=== PATIENT | male | born 1955 | race Caucasian/White ===

== ENCOUNTER 2022-12-12 03:37 | Inpatient (IN) | payer MEDICARE ==
[2022-12-12] VITALS (49 sets, daily range): BP systolic 81–149; BP diastolic 39–90; PULSE 39–94; RESP 15–29; TEMP 98.1–98.9; O2SAT 99
[~2022-12-12] VITALS: Ht 165.1 cm; Wt 52.3 kg
[2022-12-12] MEDS ORDERED: SODIUM CHLORIDE 0.9% 1000ML BAG (SEPSIS BOLUS) IV ONE (06:00)
[2022-12-12 06:25] LABS: CHLORIDE 109 mEq/L (98-107)
[2022-12-12 06:27] LABS: HEMATOCRIT. 36.6 % (42.0-52.0); MEAN CORPUSCULAR HEMOGLOBIN 26.6 pg (28.0-32.0); MEAN CORPUSCULAR VOLUME 81.5 fL (80.0-94.0); MEAN PLATELET VOLUME 9.2 fl (7.4-10.4); PLATELET 133 x1000/uL (130-400); RED CELL DISTRIBUTION WIDTH 20.9 % (11.6-14.6)
[2022-12-12] MEDS ORDERED: VANCOMYCIN 1G PREMIX 200 ML IV ONE (07:00)
[2022-12-12] MEDS ORDERED: PIPERACILLIN/TAZ 3.375G PREMIX 50 ML IV ONE (07:00)
[2022-12-12] MEDS ORDERED: NOREPINEPHRINE 8MG/250ML PMX 250 ML IV PRN (07:30)
[2022-12-12 08:11] LABS: PLATELET ESTIMATE NORMAL
[2022-12-12] MEDS: DEXT 5%/LACTATED RINGERS 1,000 ML IV SCH ×2 (09:00→23:03)
[2022-12-12] MEDS ORDERED: DOCUSATE SODIUM 100MG CAPSULE PO PRN (09:00)
[2022-12-12] MEDS ORDERED: ACETAMINOPHEN 325MG TABLET PO PRN (09:00)
[2022-12-12] MEDS ORDERED: CLONIDINE 0.1MG TABLET PO PRN (09:00)
[2022-12-12] MEDS ORDERED: GUAIFENESIN 200MG/10ML SUGAR FREE UDC PO PRN (09:00)
[2022-12-12] MEDS ORDERED: ONDANSETRON HCL 4MG/2ML INJ IV PRN (09:00)
[2022-12-12] MEDS ORDERED: MEROPENEM 1,000 MG in SODIUM CHLORIDE 0.9% 100 ML IV SCH (09:00)
[2022-12-12] MEDS ORDERED: IPRATROPIUM/ALBUTEROL 0.5-3(2.5)MG/3ML NEB NEB PRN (09:00)
[2022-12-12] MEDS ORDERED: MAGNESIUM/ALUMINUM HYDROXIDE/SIMETHICONE 30ML UDC PO PRN (09:00)
[2022-12-12] MEDS ORDERED: NOREPINEPHRINE 8 MG in DEXT 5% WATER 242 ML IV PRN (09:00)
[2022-12-12] MEDS ORDERED: NITROGLYCERIN 0.4MG TABLET SL SL PRN (09:15)
[2022-12-12 09:40] LABS: T4 FREE 1.02 ng/dL (0.76-1.46)
[2022-12-12] MEDS: PANTOPRAZOLE SODIUM 40 MG/VIAL IV SCH (09:52)
[2022-12-12] MEDS: ASCORBIC ACID 500 MG TABLET PO SCH ×2 (09:52→20:48)
[2022-12-12] MEDS: ASPIRIN 325MG EC TABLET PO SCH (09:52)
[2022-12-12] MEDS: ENOXAPARIN 40MG/0.4ML SYR SUBCUT SCH (09:52)
[2022-12-12] MEDS: ZINC SULFATE 220 MG ( 50 ) CAPSULE PO SCH (09:52)
[2022-12-12 09:54] LABS: VITAMIN B12 SERUM 644 pg/mL (211-911)
[2022-12-12 10:27] LABS: FOLIC ACID (FOLATE) SERUM > 20.00 ng/mL (>5.38)
[2022-12-12] MEDS ORDERED: FERROUS SULFATE 325MG TABLET PO SCH (11:00)
[2022-12-12] MEDS ORDERED: NOREPINEPHRINE 32 MG in DEXT 5% WATER 218 ML IV PRN ×4 (12:45)
[2022-12-12] MEDS: PREGABALIN 75MG CAPSULE PO SCH (17:17)
[2022-12-12 17:43] LABS: CLARITY URINE CLEAR (CLEAR); COLOR URINE YELLOW (YELLOW); KETONES URINE NEGATIVE (NEGATIVE); LEUKOCYTE ESTERASE URINE 2+ (NEGATIVE); NITRITE URINE POSITIVE (NEGATIVE); OCCULT BLOOD URINE 3+ (NEGATIVE); PH URINE 7.5 (4.5-8.0); PROTEIN URINE 1+ (NEGATIVE); SPECIFIC GRAVITY URINE 1.012 (1.005-1.030); UROBILINOGEN URINE 0.2 E.U./dL (0.2-1.0)
[2022-12-12 17:58] LABS: *AMPHETAMINES SCREEN URINE NEGATIVE (NEGATIVE); *BARBITURATES SCREEN URINE NEGATIVE (NEGATIVE); *BENZODIAZEPINES SCREEN URINE NEGATIVE (NEGATIVE); *COCAINE SCREEN URINE NEGATIVE (NEGATIVE); CANNABINOID URINE SCREEN NEGATIVE (NEGATIVE); METHADONE URINE SCREEN NEGATIVE (NEGATIVE); OPIATES URINE SCREEN NEGATIVE (NEGATIVE); PHENCYCLIDINE URINE SCREEN NEGATIVE (NEGATIVE)
[2022-12-12] MEDS: MIRTAZAPINE 15MG TABLET PO SCH (20:49)
[2022-12-12] MEDS: MEROPENEM 1,000 MG in SODIUM CHLORIDE 0.9% 100 ML IV SCH (20:49)
[2022-12-12 22:38] LABS: CREATINE KINASE MB FRACTION 19.9 ng/mL (0.5-3.6)
[2022-12-13] VITALS (91 sets, daily range): BP systolic 81–182; BP diastolic 30–85; PULSE 74–104; RESP 17–31; TEMP 97.5–99
[2022-12-13] MEDS ORDERED: VANCOMYCIN 750MG PREMIX 150 ML IV SCH ×2
[2022-12-13] MEDS: ZOLPIDEM TARTRATE 5MG TABLET PO PRN (03:10)
[2022-12-13 05:28] LABS: HEMATOCRIT. 29.3 % (42.0-52.0); MEAN CORPUSCULAR HEMOGLOBIN 27.5 pg (28.0-32.0); MEAN CORPUSCULAR VOLUME 80.6 fL (80.0-94.0); MEAN PLATELET VOLUME 9.9 fl (7.4-10.4); PLATELET 101 x1000/uL (130-400); RED BLOOD CELL COUNT 3.63 mill/uL (4.7-6.1); RED CELL DISTRIBUTION WIDTH 19.8 % (11.6-14.6)
[2022-12-13 05:31] LABS: CHLORIDE 117 mEq/L (98-107)
[2022-12-13 05:55] LABS: CREATINE KINASE 2867 IU/L (39-308); CREATINE KINASE MB FRACTION 9.5 ng/mL (0.5-3.6); PHOSPHORUS 1.5 mg/dL (2.5-4.9)
[2022-12-13] MEDS: TAMSULOSIN HCL 0.4MG SR CAPSULE PO SCH (08:57)
[2022-12-13] MEDS: MEROPENEM 1,000 MG in SODIUM CHLORIDE 0.9% 100 ML IV SCH ×3 (08:58→21:01)
[2022-12-13] MEDS: ZINC SULFATE 220 MG ( 50 ) CAPSULE PO SCH (08:58)
[2022-12-13] MEDS: ASPIRIN 325MG EC TABLET PO SCH (08:58)
[2022-12-13] MEDS: PREGABALIN 75MG CAPSULE PO SCH ×3 (08:58→17:18)
[2022-12-13] MEDS: ASCORBIC ACID 500 MG TABLET PO SCH ×2 (08:58→21:01)
[2022-12-13] MEDS: PANTOPRAZOLE SODIUM 40 MG/VIAL IV SCH (08:58)
[2022-12-13] MEDS: ENOXAPARIN 40MG/0.4ML SYR SUBCUT SCH (08:59)
[2022-12-13] MEDS ORDERED: MAGNESIUM 2 G PREMIX 50 ML IV NR (09:00)
[2022-12-13] MEDS ORDERED: POTASSIUM PHOS,M-BASIC-D-BASIC 30 MMOL in SODIUM CHLORIDE 0.9% 500 ML IV ONE (09:00)
[2022-12-13] MEDS: NICOTINE 7MG PATCH TD SCH (10:07)
[2022-12-13] MEDS: FERROUS SULFATE 325MG TABLET PO SCH (10:07)
[2022-12-13 10:27] LABS: PLATELET ESTIMATE SLIGHTLY DECREASED
[2022-12-13] MEDS ORDERED: LACTATED RINGERS 1,000 ML IV ONE (11:15)
[2022-12-13] MEDS ORDERED: LACTATED RINGERS 1,000 ML, LACTATED RINGERS 1,000 ML IV ONE (11:30)
[2022-12-13] MEDS ORDERED: LACTATED RINGERS 2,000 ML IV SCH (12:00)
[2022-12-13 15:39] LABS: TOTAL IRON BINDING CAPACITY 227 ug/dL (250-450)
[2022-12-13] MEDS ORDERED: MORPHINE SULFATE 2 MG/ML CPJ (NOT FOR IM USE) IV NR (17:30)
[2022-12-13] MEDS: DEXT 5%/LACTATED RINGERS 1,000 ML IV SCH (18:46)
[2022-12-13] MEDS: MIRTAZAPINE 15MG TABLET PO SCH (21:01)
[2022-12-14] VITALS (37 sets, daily range): BP systolic 96–196; BP diastolic 48–92; PULSE 64–112; RESP 14–28; TEMP 97.8–100
[2022-12-14] MEDS: ZOLPIDEM TARTRATE 5MG TABLET PO PRN (01:03)
[2022-12-14] MEDS: ACETAMINOPHEN 325MG TABLET PO PRN (01:03)
[2022-12-14 06:14] LABS: HEMOGLOBIN 9.8 g/dL (14.0-18.0); MEAN CORPUSCULAR HEMOGLOBIN 27.3 pg (28.0-32.0); MEAN CORPUSCULAR VOLUME 80.4 fL (80.0-94.0); PLATELET 107 x1000/uL (130-400); RED CELL DISTRIBUTION WIDTH 19.8 % (11.6-14.6)
[2022-12-14 06:26] LABS: CHLORIDE 115 mEq/L (98-107)
[2022-12-14 06:45] LABS: CREATINE KINASE 1319 IU/L (39-308); CREATINE KINASE MB FRACTION 2.2 ng/mL (0.5-3.6); PHOSPHORUS 2.5 mg/dL (2.5-4.9)
[2022-12-14] MEDS: MEROPENEM 1,000 MG in SODIUM CHLORIDE 0.9% 100 ML IV SCH ×2 (06:49→14:25)
[2022-12-14] MEDS: ZINC SULFATE 220 MG ( 50 ) CAPSULE PO SCH (08:01)
[2022-12-14] MEDS: ASPIRIN 325MG EC TABLET PO SCH (08:01)
[2022-12-14] MEDS: NICOTINE 7MG PATCH TD SCH (08:01)
[2022-12-14] MEDS: ASCORBIC ACID 500 MG TABLET PO SCH ×2 (08:01→21:37)
[2022-12-14] MEDS: PANTOPRAZOLE SODIUM 40 MG/VIAL IV SCH (08:01)
[2022-12-14] MEDS: TAMSULOSIN HCL 0.4MG SR CAPSULE PO SCH (08:01)
[2022-12-14] MEDS: PREGABALIN 75MG CAPSULE PO SCH ×3 (08:01→16:47)
[2022-12-14] MEDS: ENOXAPARIN 40MG/0.4ML SYR SUBCUT SCH (08:02)
[2022-12-14] MEDS: CEFEPIME 1,000 MG in DEXTROSE 5% WATER 50 ML IV SCH (16:10)
[2022-12-14] MEDS: MIRTAZAPINE 15MG TABLET PO SCH (21:37)
[2022-12-14] MEDS: DEXT 5%/LACTATED RINGERS 1,000 ML IV SCH ×2 (21:38→22:54)
[2022-12-14] MEDS: METRONIDAZOLE 500MG TABLET PO SCH (21:38)
[2022-12-15] VITALS: BP 140/70; PULSE 81; RESP 18; TEMP 98.6
[2022-12-15] MEDS: ACETAMINOPHEN 325MG TABLET PO PRN (02:43)
[2022-12-15 04:00] VITALS: BP 108/66; PULSE 60; RESP 20; TEMP 98
[2022-12-15] MEDS: CEFEPIME 1,000 MG in DEXTROSE 5% WATER 50 ML IV SCH ×2 (06:31→17:41)
[2022-12-15 07:39] LABS: HEMATOCRIT 30.8 % (42.0-52.0); HEMOGLOBIN 10.3 g/dL (14.0-18.0); MEAN CORPUSCULAR HEMOGLOBIN 26.7 pg (28.0-32.0); MEAN CORPUSCULAR VOLUME 79.8 fL (80.0-94.0); PLATELET 120 x1000/uL (130-400); RED BLOOD CELL COUNT 3.86 mill/uL (4.7-6.1); RED CELL DISTRIBUTION WIDTH 19.3 % (11.6-14.6)
[2022-12-15 08:00] VITALS: BP 152/62; PULSE 70; RESP 20; TEMP 98.8
[2022-12-15 08:43] LABS: CHLORIDE 113 mEq/L (98-107)
[2022-12-15 08:49] LABS: PHOSPHORUS 3.1 mg/dL (2.5-4.9)
[2022-12-15] MEDS: ASCORBIC ACID 500 MG TABLET PO SCH ×2 (09:00→21:16)
[2022-12-15] MEDS: PREGABALIN 75MG CAPSULE PO SCH ×3 (09:00→17:41)
[2022-12-15] MEDS: ZINC SULFATE 220 MG ( 50 ) CAPSULE PO SCH (09:00)
[2022-12-15] MEDS: METRONIDAZOLE 500MG TABLET PO SCH ×2 (09:00→21:17)
[2022-12-15] MEDS: ASPIRIN 325MG EC TABLET PO SCH (09:00)
[2022-12-15] MEDS: ENOXAPARIN 40MG/0.4ML SYR SUBCUT SCH (09:00)
[2022-12-15] MEDS: FERROUS SULFATE 325MG TABLET PO SCH (09:00)
[2022-12-15] MEDS: TAMSULOSIN HCL 0.4MG SR CAPSULE PO SCH (09:00)
[2022-12-15] MEDS: NICOTINE 7MG PATCH TD SCH (09:00)
[2022-12-15] MEDS: PANTOPRAZOLE SODIUM 40 MG/VIAL IV SCH (09:00)
[2022-12-15 12:00] VITALS: BP 140/64; PULSE 80; RESP 20; TEMP 99.7
[2022-12-15 16:00] VITALS: BP 159/92; PULSE 85; RESP 20; TEMP 99.7
[2022-12-15 20:00] VITALS: BP 123/69; PULSE 87; RESP 20; TEMP 98.1
[2022-12-15] MEDS: MIRTAZAPINE 15MG TABLET PO SCH (21:15)
[2022-12-15] MEDS: DEXT 5%/LACTATED RINGERS 1,000 ML IV SCH (22:34)
[2022-12-16] VITALS: BP 120/62; PULSE 82; RESP 20; TEMP 98
[2022-12-16 04:00] VITALS: BP 138/78; PULSE 83; RESP 19; TEMP 98
[2022-12-16] MEDS: CEFEPIME 1,000 MG in DEXTROSE 5% WATER 50 ML IV SCH ×2 (06:22→18:55)
[2022-12-16 07:02] LABS: HEMATOCRIT 34.4 % (42.0-52.0); HEMOGLOBIN 11.6 g/dL (14.0-18.0); MEAN CORPUSCULAR HEMOGLOBIN 26.6 pg (28.0-32.0); MEAN CORPUSCULAR VOLUME 78.6 fL (80.0-94.0); PLATELET 133 x1000/uL (130-400); RED BLOOD CELL COUNT 4.37 mill/uL (4.7-6.1); RED CELL DISTRIBUTION WIDTH 19.3 % (11.6-14.6)
[2022-12-16 08:00] VITALS: BP 134/78; PULSE 78; RESP 18; TEMP 97.9
[2022-12-16] MEDS: ENOXAPARIN 40MG/0.4ML SYR SUBCUT SCH (09:47)
[2022-12-16] MEDS: NICOTINE 7MG PATCH TD SCH (09:48)
[2022-12-16] MEDS: PANTOPRAZOLE SODIUM 40 MG/VIAL IV SCH (09:48)
[2022-12-16] MEDS: PREGABALIN 75MG CAPSULE PO SCH ×3 (09:48→19:04)
[2022-12-16] MEDS: ASPIRIN 325MG EC TABLET PO SCH (09:49)
[2022-12-16] MEDS: ZINC SULFATE 220 MG ( 50 ) CAPSULE PO SCH (09:49)
[2022-12-16] MEDS: TAMSULOSIN HCL 0.4MG SR CAPSULE PO SCH (09:49)
[2022-12-16] MEDS: ASCORBIC ACID 500 MG TABLET PO SCH ×2 (09:50→22:22)
[2022-12-16] MEDS: METRONIDAZOLE 500MG TABLET PO SCH ×2 (09:50→22:22)
[2022-12-16] MEDS: DEXT 5%/LACTATED RINGERS 1,000 ML IV SCH (09:51)
[2022-12-16 11:26] LABS: CHLORIDE 109 mEq/L (98-107)
[2022-12-16 11:28] LABS: PHOSPHORUS 3.7 mg/dL (2.5-4.9)
[2022-12-16 12:00] VITALS: BP 112/72; PULSE 86; RESP 18; TEMP 97.9
[2022-12-16] MEDS ORDERED: LIDOCAINE HCL 1% 10 MG/ML 10ML VIAL ONE (12:40)
[2022-12-16 16:00] VITALS: BP 122/67; PULSE 85; RESP 20; TEMP 97.9
[2022-12-16 20:00] VITALS: BP 119/66; PULSE 94; RESP 17; TEMP 98.2
[2022-12-16] MEDS: MIRTAZAPINE 15MG TABLET PO SCH (22:22)
[2022-12-17] VITALS: BP 155/82; PULSE 88; RESP 19; TEMP 98.2
[2022-12-17 04:00] VITALS: BP 135/81; PULSE 98; RESP 18; TEMP 97.9
[2022-12-17] MEDS: CEFEPIME 1,000 MG in DEXTROSE 5% WATER 50 ML IV SCH (06:42)
[2022-12-17 07:49] VITALS: BP 147/84; PULSE 86; RESP 16; TEMP 100
[2022-12-17 08:08] LABS: HEMATOCRIT 35.1 % (42.0-52.0); HEMOGLOBIN 12.1 g/dL (14.0-18.0); MEAN CORPUSCULAR HEMOGLOBIN 27.1 pg (28.0-32.0); MEAN CORPUSCULAR VOLUME 78.9 fL (80.0-94.0); PLATELET 178 x1000/uL (130-400); RED BLOOD CELL COUNT 4.45 mill/uL (4.7-6.1); RED CELL DISTRIBUTION WIDTH 19.4 % (11.6-14.6)
[2022-12-17] MEDS: ZINC SULFATE 220 MG ( 50 ) CAPSULE PO SCH (08:23)
[2022-12-17] MEDS: FERROUS SULFATE 325MG TABLET PO SCH (08:23)
[2022-12-17] MEDS: ENOXAPARIN 40MG/0.4ML SYR SUBCUT SCH (08:23)
[2022-12-17 08:24] VITALS: PULSE 86
[2022-12-17] MEDS: TAMSULOSIN HCL 0.4MG SR CAPSULE PO SCH (08:24)
[2022-12-17] MEDS: ASPIRIN 325MG EC TABLET PO SCH (08:24)
[2022-12-17] MEDS: PANTOPRAZOLE SODIUM 40 MG/VIAL IV SCH (08:24)
[2022-12-17] MEDS: NICOTINE 7MG PATCH TD SCH (08:24)
[2022-12-17] MEDS: ASCORBIC ACID 500 MG TABLET PO SCH (08:25)
[2022-12-17] MEDS: METRONIDAZOLE 500MG TABLET PO SCH (08:25)
[2022-12-17] MEDS: PREGABALIN 75MG CAPSULE PO SCH (08:36)
[2022-12-17 09:18] LABS: CHLORIDE 110 mEq/L (98-107)
[2022-12-17 09:30] LABS: PHOSPHORUS 3.2 mg/dL (2.5-4.9)
[2022-12-17] MEDS: DEXT 5%/LACTATED RINGERS 1,000 ML IV SCH (09:47)
== END 2022-12-17 13:24 | disposition home health service (06) | DRG 871 ==
LOC: ER 03:37 → EDBEDREQSVC 08:17 → SUPCPDRO 08:51 → EDBEDREQ 09:32 → MICUSO 10:18 → EDBEDREQTM 10:21 → 8WST 12-14 16:28
PROVIDERS: ADMIT Internal Medicine; ATTEND Internal Medicine
PROC: 02HV33Z Insertion of Infusion Device into Superior Vena Cava, Percutaneous Approach (ICD-10-PCS; principal; 2022-12-16)
PROC: B5181ZA Fluoroscopy of Superior Vena Cava using Low Osmolar Contrast, Guidance (ICD-10-PCS; 2022-12-16)
PROC: B548ZZA Ultrasonography of Superior Vena Cava, Guidance (ICD-10-PCS; 2022-12-16)
DX: A41.9 Sepsis, unspecified organism (principal); L89.154 Pressure ulcer of sacral region, stage 4; L89.204 Pressure ulcer of unspecified hip, stage 4; R65.21 Severe sepsis with septic shock; E87.20 Acidosis, unspecified; N13.30 Unspecified hydronephrosis; I10 Essential (primary) hypertension; Z20.822 Contact with and (suspected) exposure to COVID-19; D64.9 Anemia, unspecified; E11.69 Type 2 diabetes mellitus with other specified complication; E83.39 Other disorders of phosphorus metabolism; E83.42 Hypomagnesemia; E83.51 Hypocalcemia; E87.6 Hypokalemia; K57.90 Diverticulosis of intestine, part unspecified, without perforation or abscess without bleeding; K86.9 Disease of pancreas, unspecified; E78.00 Pure hypercholesterolemia, unspecified; F10.20 Alcohol dependence, uncomplicated; I95.9 Hypotension, unspecified; F32.A Depression, unspecified; N28.1 Cyst of kidney, acquired; K83.8 Other specified diseases of biliary tract; D69.6 Thrombocytopenia, unspecified; D50.9 Iron deficiency anemia, unspecified; Z89.612 Acquired absence of left leg above knee; I25.2 Old myocardial infarction; Z87.891 Personal history of nicotine dependence
CPT/HCPCS: 36415; 36573; 71045; 74176; 76604; 76700; 76770; 80048; 80053; 80061; 80305; 81003; 82550; 82553; 82607; 82746; 82962; 83036; 83540; 83550; 83605; 83735; 83880; 84100; 84134; 84145; 84439; 84443; 84484; 85025; 85027; 85651; 87077; 87186; 87426; 93005; 93306; 93880; 93970; 99291; C1725; C9113; C9803; J0692; J1650; J2185; J2270; J2543; J3370; J3475; J3490; J7030; J7040; J7050; J7060; A4315